=== PATIENT | female | born 1985 | race Caucasian/White ===

== ENCOUNTER → 2016-05-15 | Outpatient (CLI) | payer OTHER ==
[~2016-05-15] MED LIST: ACET-1311 PO; ACET-749 PO; AMOX500T PO; CLR10 PO; HYDR-3419 PO; IBUP600T44 PO; MISC-696; PRENTAB26 PO; RANI150T3 PO; VALA500T60 PO
[2016-05-15 16:36] LABS: HEMATOCRIT 30.1 % (37-47)
[2016-05-15 18:10] LABS: GTGD 50 Grams
[2016-05-15 18:19] LABS: URINE APPEARANCE CLEAR (CLEAR); URINE BILIRUBIN NEG (NEG); URINE COLOR YELLOW; URINE EPITHELIAL CELL AUTO >30 /lpf (0-5); URINE NITRITE NEG (NEG); URINE PH 6.5 (4.5-7.5); URINE SPECIFIC GRAVITY 1.024 (1.000-1.030); UROBILINOGEN NEG (NEG)
[2016-05-15 18:30] LABS: MANUAL MICROSCOPIC REQUIRED? NO; REVIEW REQ? NO
== END | disposition home or self-care (01) ==
LOC: C.LAB1850 15:21
PROVIDERS: ATTEND Obstetrics & Gynecology
DX: Z34.82 Encounter for supervision of other normal pregnancy, second trimester (principal)

== ENCOUNTER → 2016-05-27 | Outpatient (CLI) | payer OTHER | END | disposition home or self-care (01) | LOC: C.LAB1850 08:19 | PROVIDERS: ATTEND Obstetrics & Gynecology | DX: O28.9 Unspecified abnormal findings on antenatal screening of mother (principal) ==

== ENCOUNTER → 2016-07-20 | Outpatient (CLI) | payer OTHER ==
[~2016-07-20] MED LIST changes: +CPR500 PO; +SULF800T23 PO; +ZVR400 PO
== END | disposition home or self-care (01) ==
LOC: C.LABPVFM 14:53
PROVIDERS: ATTEND Family Medicine
DX: J02.9 Acute pharyngitis, unspecified (principal)

== ENCOUNTER 2016-07-22 21:19 | Inpatient (IN) | payer OTHER ==
[~2016-07-22] VITALS: Ht 160 cm; Wt 75.0 kg
[~2016-07-22 21:19] MED LIST changes: -ACET-749 PO; -AMOX500T PO; -CLR10 PO; -CPR500 PO; -HYDR-3419 PO; -MISC-696; -RANI150T3 PO; -SULF800T23 PO; -VALA500T60 PO; -ZVR400 PO
[2016-07-22] MEDS ORDERED: LACTATED RINGER'S 1000ML 1,000 ML IV PRN (21:44)
[2016-07-22] MEDS ORDERED: LACTATED RINGER'S 1000ML 1,000 ML IV SCH (21:44)
[2016-07-22] MEDS ORDERED: LACTATED RINGER'S 1000ML 500 ML IV PRN (21:44)
[2016-07-22] MEDS ORDERED: PENICILLIN G POTASSIUM IV 3 MU in DEXTROSE 5% 100ML 100 ML IV PRN (21:45)
[2016-07-22] MEDS ORDERED: OXYTOCIN 30 UNITS/500ML NSS IV PRN (21:45)
[2016-07-22] MEDS ORDERED: PENICILLIN G POTASSIUM IV 6 MU in DEXTROSE 5% 250ML 250 ML IV STA (21:48)
[2016-07-22 22:02] VITALS: Ht 160 cm; Wt 75.0 kg
[2016-07-22] MEDS ORDERED: VALA500T60 PO (22:07)
[2016-07-22] MEDS ORDERED: RANI150T3 PO (22:07)
[2016-07-22] MEDS ORDERED: CLR10 PO (22:07)
[2016-07-22 22:29] LABS: HEMATOCRIT 30.2 % (37-47); MEAN CELL VOLUME 80.7 fL (80-100); MEAN CORPUSCULAR HEMOGLOBIN 26.5 pg (25-34); MEAN CORPUSCULAR HGB CONC 32.8 g/dl (32-36); MEAN PLATELET VOLUME 9.3 fL (7.4-10.4); PLATELET COUNT 294 K/uL (130-400); RED BLOOD COUNT 3.74 M/uL (4.2-5.4); WHITE BLOOD COUNT 7.05 K/uL (4.8-10.8)
[2016-07-23] MEDS ORDERED: BUPIVACAINE 0.25% 30 ML VIAL ONE (01:07)
[2016-07-23] MEDS ORDERED: FENTANYL CITRATE INJ 50 MCG/1 ML 2 ML VIAL ONE (01:07)
[2016-07-23] MEDS ORDERED: EpHEDrine SULFATE INJ 50 MG/ML AMP ONE (01:07)
[2016-07-23] MEDS ORDERED: FENTANYL 2MCG/ML ROPIV 1.25MG/ML 100ML BAG EPI ONE (01:08)
[2016-07-23] MEDS ORDERED: LACTATED RINGER'S 1000ML 500 ML IV PRN (01:53)
[2016-07-23] MEDS ORDERED: ONDANSETRON INJ 2 MG/ML 2 ML VIAL IV PRN (02:00)
[2016-07-23] MEDS ORDERED: NALOXONE HCL INJ 0.4 MG/1 ML VIAL/CARP IV PRN (02:00)
[2016-07-23] MEDS ORDERED: EpHEDrine SULFATE INJ 50 MG/ML AMP IV PRN (02:00)
[2016-07-23] MEDS ORDERED: FENTANYL 2MCG/ML ROPIV 1.25MG/ML 100ML BAG EPI PRN (02:00)
[2016-07-23] MEDS ORDERED: DiphenhydrAMINE HCL 50 MG/ML VIAL IV PRN (02:00)
[2016-07-23] MEDS ORDERED: NALBUPHINE HCL INJ 10 MG/ML AMP IV PRN (02:00)
[2016-07-23] MEDS ORDERED: ACETAMINOPHEN 325 MG TAB PO PRN (04:00)
[2016-07-23] MEDS ORDERED: OXYTOCIN 30 UNITS/500ML NSS IV PRN (04:00)
[2016-07-23] MEDS ORDERED: LANOLIN OINT EXT PRN ×2 (04:00)
[2016-07-23] MEDS ORDERED: BENZOCAINE 20% AER SPR 82.5 GM CAN EXT PRN (04:00)
[2016-07-23] MEDS ORDERED: SUPERCREAM 0.870 % 15GM JAR EXT PRN (04:00)
[2016-07-23] MEDS ORDERED: HYDROCORTISONE ACETATE 25 MG SUPP PR PRN (04:00)
[2016-07-23] MEDS ORDERED: DIPHTHERIA/TETANUS/PERTUSSIS 0.5 ML SYR/VIAL IM. ONE (04:00)
[2016-07-23] MEDS ORDERED: ACETAMINOPHEN/CODEINE 300/30MG TAB PO PRN ×2 (04:00)
[2016-07-23 06:10] VITALS: BP 104/64; PULSE 93; TEMP 36.9
[2016-07-23 07:30] VITALS: BP 113/68; PULSE 91; TEMP 36.5; O2SAT 97
--- NOTE | 2016-07-23 07:40 | DELIVERY SUMMARY ---
DATE OF OPERATION: 07/23/2016 DATE OF DELIVERY: 07/23/2016. DELIVERY NOTE FINDINGS: Viable female with Apgars of 8 and 9. Baby delivered over a midline second degree laceration. Cord gasses, cord blood samples obtained. Placenta delivered spontaneously. Laceration repaired with 4-0 Vicryl in a routine fashion. Estimated blood loss 300 mL. LABOR NOTE: The patient is a 31-year-old 2, para 1 with an EDC of 06 August who was admitted at 37+ weeks gestational age with spontaneous rupture of membranes. The patient states membranes ruptured at approximately 2000 hours on the 22 of July with subsequent onset of contractions. The patient has had a benign course. She has a history of herpes simplex virus and is on Valtrex since 36 weeks. No recent outbreak. The patient's blood type is AB positive, antibody negative, rubella immune, hepatitis B negative. She had an elevated 1-hour Glucola at 28 weeks with a normal 2-hour glucose tolerance test. She has positive GBS bacteria. On admission the patient was 3 cm dilated, 50% efface, -2 station with gross rupture of membranes. With GBS status she was placed on penicillin at 6 million units loading dose and 3 million units every 4 hours until delivery. Because of the ruptured membranes Pitocin augmentation was initiated. Over the next 5 hours the patient progressed to full dilatation and began her second stage. She pushed for approximately an hour delivering a viable female infant with description as above. Cord blood samples, cord gas samples obtained. Placenta delivered spontaneously. Midline second degree laceration repaired with 4-0 Vicryl in a routine fashion. Estimated blood loss 300 mL. Sponge and needle count was correct. I attest to the content of the Intraoperative Record and any orders documented therein. Any exceptio ns are noted below.
[2016-07-23] MEDS: FERROUS SULFATE 325 MG TAB PO SCH (08:27)
[2016-07-23] MEDS: DOCUSATE SODIUM 100 MG CAP PO SCH ×2 (08:27→20:34)
[2016-07-23] MEDS: LORATADINE 10 MG TAB PO SCH (08:27)
[2016-07-23] MEDS: PRENATAL VITAMIN TAB PO SCH (08:27)
--- NOTE | 2016-07-23 10:30 | Anesthesia Procedure Note ---
Anesthesia Epidural Removal Nt Date & Time July 23, 2016 at 10:30 Vital Signs Pain Intensity: 0.0 Vital Signs Past 12 Hours Date Time Temp Pulse Resp B/P Pulse Ox O2 Delivery O2 Flow Rate FiO2 07/23/16 06:10 36.9 93 18 104/64 Room Air Notes Mental Status: alert / awake / arousable, participated in evaluation Nausea / Vomiting: adequately controlled Pain: adequately controlled Airway Patency, RR, SpO2: stable & adequate BP & HR: stable & adequate Hydration State: stable & adequate Neuraxial Anesthesia: was administered Anesthetic Complications: no major complications apparent, pt satisfied with anesthetic care Epidural: removed without complications, with tip intact
[2016-07-23 12:00] VITALS: BP 110/72; PULSE 97; TEMP 36.7; O2SAT 97
[2016-07-23 15:30] VITALS: BP 115/77; PULSE 90; TEMP 36.9
[2016-07-23] MEDS: IBUPROFEN 600 MG TAB PO PRN (18:11)
[2016-07-23 19:50] VITALS: BP 116/81; PULSE 90; TEMP 36.8
[2016-07-23 23:45] VITALS: BP 114/75; PULSE 79; TEMP 36.5
[2016-07-24 07:04] LABS: HEMATOCRIT 27.8 % (37-47)
--- NOTE | 2016-07-24 07:25 | Progress Note ---
Subjective July 24, 2016. Subjective conversation w/ patient, physical exam, lab review Ambulation: ambulating normally Voiding: no voiding problems Passing Gas: Yes Diet Tolerance: Regular Diet Lochia: Small Feeding Type: Breast Feeding Pain: denies pain Comment: Patient was seen at the bedside. No acute event overnight. Review of Systems Constitutional: No fever Respiratory: No cough, No shortness of breath Cardiac: No chest pain Breast: No breast lump Abdomen: No nausea, No pain, No vomiting Female : No dysuria Denies headache Objective Vital Signs Date Time Temp Pulse Resp B/P Pulse Ox O2 Delivery O2 Flow Rate FiO2 07/23/16 23:45 36.5 79 18 114/75 Room Air 07/23/16 23:45 Room Air 07/23/16 19:50 36.8 90 18 116/81 Room Air 07/23/16 15:30 Room Air 07/23/16 15:30 36.9 90 20 115/77 Room Air 07/23/16 12:00 36.7 97 16 110/72 97 Room Air 07/23/16 07:30 36.5 91 20 113/68 97 Room Air 07/23/16 07:30 97 Room Air Physical Exam General Appearance: WELL-APPEARING, WD/WN, NO APPARENT DISTRESS Respiratory/Chest: chest non-tender, lungs clear, normal breath sounds, no respiratory distress Cardiovascular: regular rate, rhythm Abdomen: normal bowel sounds, non tender, soft Fundus: Firm, Relation to Umbilicus (1-2cm below U) Extremities: non-tender, no pedal edema, no calf tenderness Laboratory Results Last 24 Hours Test 07/24/16 06:40 Hemoglobin 9.0 g/dL Hematocrit 27.8 % Medications Current Inpatient Medications Medications (Trade) Dose Ordered Sig/Brenda Route Start Time Stop Time Status Last Admin Dose Admin Lactated Ringer's (Lr 1000ml) 1,000 ml @ 125 mls/hr Q8H IV 07/22/16 21:44 07/24/16 21:43 07/22/16 22:08 125 MLS/HR Oxytocin (Pitocin IV) 30 units UD PRN IV 07/23/16 04:00 08/22/16 03:59 Benzocaine (Dermoplast Aero Spr) 1 appln PRN PRN EXT 07/23/16 04:00 08/22/16 03:59 07/23/16 09:07 1 APPLN Cocaine HCl (Supercream 0.870% Cr) BID PRN EXT 07/23/16 04:00 08/06/16 03:59 Hydrocortisone Acetate (Anusol Hc Supp) 25 mg BID PRN HI 07/23/16 04:00 08/22/16 03:59 Lanolin (Lanolin Oint) PRN PRN EXT 07/23/16 04:00 08/22/16 03:59 Prenat Multivit/ [place]/Iron/Folic Ac ( Vitamin Tab) 1 tab DAILY PO 07/23/16 08:00 08/22/16 07:59 07/23/16 08:27 1 TAB Ibuprofen (Motrin Tab) 600 mg Q4H PRN PO 07/23/16 04:00 08/22/16 03:59 07/23/16 18:11 600 MG Acetaminophen (Tylenol Tab) 650 mg Q6H PRN PO 07/23/16 04:00 08/22/16 03:59 Acetaminophen/ Codeine Phosphate (Tylenol w/ Codeine #3 Tab) 1 tab Q4H PRN PO 07/23/16 04:00 08/22/16 03:59 Acetaminophen/ Codeine Phosphate (Tylenol w/ Codeine #3 Tab) 2 tab Q4H PRN PO 07/23/16 04:00 08/22/16 03:59 Bisacodyl (Dulcolax Tab) 5 mg 20 PO 07/24/16 20:00 07/24/16 20:01 Docusate Sodium (coLACE CAP) 100 mg BID PO 07/23/16 08:00 08/22/16 07:59 07/23/16 20:34 100 MG Ferrous Sulfate (Feosol Tab) 325 mg DAILY PO 07/23/16 08:00 08/22/16 07:59 07/23/16 08:27 325 MG Loratadine (Claritin Tab) 10 mg DAILY PO 07/23/16 08:00 08/22/16 07:59 07/23/16 08:27 10 MG Assessment and Plan Post- Day#: 1 Continue Routine Care: A/P: This is a 31 y/o female, , s/p normal vaginal delivery. She is ambulating and clinically stable. Plan: - Vitals signs are reviewed and WNL (Tmax 36.9 ) - Last Hgb is 9.0 - Blood type AB+, GBS positive, Rubella Immune - Routine care - Encourage ambulation, monitor and control pain with medication as needed , continue with regular diet as tolerated and monitor lochia - Stool softeners and sitz bath recommended - Encourage breast feeding and educate about breast feeding Resident Physician Supervision Note: I interviewed and examined the patient. Discussed with Dr. Yeh and agree with findings and plan as documented in the note. Any exceptions or clarifications are listed here: [None] Documented By: Meme Bass
[2016-07-24 08:00] VITALS: BP 100/65; PULSE 68; TEMP 36.9
[2016-07-24] MEDS: DOCUSATE SODIUM 100 MG CAP PO SCH (08:26)
[2016-07-24] MEDS: FERROUS SULFATE 325 MG TAB PO SCH (08:26)
[2016-07-24] MEDS: PRENATAL VITAMIN TAB PO SCH (08:26)
[2016-07-24] MEDS: LORATADINE 10 MG TAB PO SCH (08:26)
[2016-07-24] MEDS: IBUPROFEN 600 MG TAB PO PRN (08:35)
--- NOTE | 2016-07-24 11:56 | Discharge Instructions ---
Discharge Instructions Date of Service July 24, 2016. Admission Reason for Admission: Check Rupture Discharge Discharge Diagnosis / Problem: s/p vaginal delivery Discharge Goals Goal(s): Routine recovery after delivery Medications Continue Dispensed Medications: supercream, dermaplast, tucks, lansinoh Activity Recommendations Activity Limitations: as noted below . Instructions / Follow-Up Instructions / Follow-Up ACTIVITY RECOMMENDATIONS: * Gradual return to full activity over the next 2-3 weeks. * No lifting - nothing heavier than baby over the next 2-3 weeks. * Do not engage in vigorous exercise, sexual activity or sports until cleared by your physician. * Do not drive or operate any motorized equipment until cleared by your physician. * You may shower/bathe daily. MEDICATIONS: For discomfort or pain, you may use Acetaminophen (Tylenol), Ibuprofen (Advil), or Naproxen (Aleve) following the package directions. For constipation you may use Colace following the package directions. BREAST CARE: If you are not breast feeding: * Wear a supportive bra 24 hours a day for one to two weeks. * Avoid stimulating your breasts and nipples as much as possible during the first few weeks after delivery. * When taking a shower, have the warm water hit your back, not breasts. * When your breasts feel full, apply ice packs. Usually three to four times a day helps ease the discomfort. * Take a mild pain medication (Tylenol / Motrin) when you are uncomfortable. If breast feeding: * Use breast milk to lubricate nipples. Lansinoh cream may be used for sore nipples. You do not need to remove cream prior to breast feeding. If using a different brand of cream, check the label for directions regarding removal of cream prior to nursing. * Wear a supportive bra. * If having problems with breasts or breast feeding, call a [employer] i[employer] consultant or your health care provider. EPISIOTOMY CARE: After delivery, if you have an episiotomy (stitches), the following steps will ease discomfort and aid healing. * For the first 24 hours after delivery, place ice packs next to your episiotomy to help reduce swelling. * After the first 24 hour-period, sitz baths, either portable or in the tub, are suggested. A shower with a shower arm sprayed over the episiotomy may be comforting. * Tricia care should be done after each voiding and bowel movement. Squirt warm water from a plastic bottle over the perineum (region of the body between the anus and urinary opening) and pat dry. * Use Dermoplast to ease discomfort. Shake container. [place] directly over the episiotomy. Place a Tucks on a clean sanitary pad next to your episiotomy. SPECIAL CARE INSTRUCTIONS: When you are discharged from the hospital, it is important for you to follow the instructions listed below: * During the first week at home, you should be able to care for yourself and your baby. In addition, the usual light household activities are encouraged. * Limit your activities to the way you feel. Do not try to clean the house or move furniture. Be sensible. * If you actively engage in sports and have done so up until the time of your delivery, you may resume these activities as soon as you feel able. This may take up to one month or even longer. Use good judgment. * Continue to take your vitamins for at least six weeks after the of your baby. * Your diet need not be limited unless you were on a special diet before your delivery. Breast-feeding mothers need around 2500 calories per day and at least 64-80 ounces of fluid per day (8 to 10 glasses). * You should eat foods from the four major food groups. Crash diets or fad diets are to be avoided. Eating lean meats, fresh fruits and vegetables, low-fat dairy products, high fiber foods and a regular exercise program, will help you get back to your pre- weight without putting your health at risk. * Constipation is sometimes a problem after delivery. Take a mild laxative as needed. If breast feeding, Milk of Magnesia is acceptable to use. You may use a suppository or Fleets enema if no episiotomy. * A daily shower or tub bath is suggested. Be sure to thoroughly and gently dry the perineum. * A bloody vaginal discharge will usually continue until around four weeks post . A small amount of bleeding may continue for as long as six weeks. Vaginal discharge changes from the bright red bleeding after delivery to pink then brownish and finally yellowish-pink before becoming white and disappearing. * Bleeding may increase with activity. Your first period may come in 4-8 weeks. If you are breast feeding, your period may be delayed even longer. * [place] (sex) can begin whenever both you and your partner feel comfortable and do not have any form of genital infection. It is recommended that you wait at least six weeks for internal and external healing to occur. If you have questions, please talk to your health care practitioner. A condom should be used to prevent infection and . * Foreplay, gentle intercourse and lubrication is very important the first several times to prevent pain. A water-based lubricant such as K-Y jelly or Astroglide may be used. * If you have RH negative blood and your baby is RH positive, you will receive RHOGAM by injection prior to discharge. The nurse will give you a card to keep with you that has the date and place that you received RHOGAM after delivery. * During your care, you had a Rubella screen done to check for the presence of rubella antibodies in your blood. If your test was negative, you will receive a Rubella vaccine prior to discharge. This vaccine may cause a fever, soreness at the injection site and flu-like symptoms. If these symptoms persist, notify your health care practitioner. is not advised for one month after a Rubella vaccine. * Verbalizes understanding of car seat law as reviewed with patient nursing. * Car Seat hand-out given and reviewed with patient by nursing. * Shaken baby information reviewed with patient by nursing. Call you doctor if: * Heavy bleeding (saturating several pads an hour) or passing clots the size of your fist. * A fever >101 degrees F (38.3 degrees C) on two occasions four hours apart and /or chills. * Unusual pain in the pelvic or vaginal areas. * "Baby Blues" lasting longer than two weeks. If you have any questions or concerns, call your health care practitioner at . FOLLOW UP VISIT: * Please call the office at to schedule a 6 week examination. It is important you keep this appointment. It is important for you to make arrangements for either yearly or twice yearly check-ups thereafter. Current Hospital Diet Patient's current hospital diet: Regular OB Diet Discharge Diet Recommended Diet: Regular Diet Pending Studies Studies pending at discharge: no Medical Emergencies . Who to Call and When: Medical Emergencies: If at any time you feel your situation is an emergency, please call 531 immediately. . Non-Emergent Contact Non-Emergency issues call your: Ticket Sales Supervisor Call Non-Emergent contact if: you have a fever, temperature is above 101 . . "Provider Documentation" section prepared by Rivka Yeh. . VTE Core Measure Inpt VTE Proph given/why not?: Treatment not indicated
[2016-07-24] MEDS ORDERED: MISC-696 (14:31)
[2016-07-24 14:37] VITALS: BP_DIAS 65; PULSE 68; TEMP 36.9
[2016-07-24] MEDS ORDERED: BISACODYL 5 MG TABEC PO SCH (20:00)
[2016-08-25] MEDS ORDERED: ACET-1311 PO (11:12)
== END 2016-07-24 15:10 | disposition home or self-care (01) | DRG 774 ==
LOC: C.LD 21:19 → C.OPB 21:19 → C.LD 21:46 → C.OBG 07-23 06:22
PROVIDERS: ADMIT Obstetrics & Gynecology; ATTEND Obstetrics & Gynecology
PROC: 10E0XZZ Delivery of Products of Conception, External Approach (ICD-10-PCS; principal; 2016-07-23)
PROC: 0KQM0ZZ Repair Perineum Muscle, Open Approach (ICD-10-PCS; principal; 2016-07-23)
DX: O99.824 Streptococcus B carrier state complicating childbirth (principal); O98.52 Other viral diseases complicating childbirth; B00.9 Herpesviral infection, unspecified; O70.1 Second degree perineal laceration during delivery; O99.52 Diseases of the respiratory system complicating childbirth; J04.0 Acute laryngitis; O99.62 Diseases of the digestive system complicating childbirth; K21.9 Gastro-esophageal reflux disease without esophagitis; O99.02 Anemia complicating childbirth; D64.9 Anemia, unspecified; Z37.0 Single live birth; Z3A.37 37 weeks gestation of pregnancy; Z79.899 Other long term (current) drug therapy

== ENCOUNTER → 2016-08-04 | Outpatient (CLI) | payer OTHER ==
[~2016-08-04] MED LIST changes: +ACET-749 PO; +AMOX500T PO; +CLR10 PO; +CPR500 PO; +HYDR-3419 PO; -IBUP600T44 PO; +MISC-696; +OPTIRAY 320 IV PRN; +RANI150T3 PO; +SULF800T23 PO; +VALA500T60 PO; +ZVR400 PO
--- NOTE | 2016-08-04 15:47 | DIAGNOSTIC IMAGING REPORT ---
CT SCAN OF THE BRAIN WITH IV CONTRAST CLINICAL HISTORY: Vocal cord paralysis. COMPARISON STUDY: No priors. TECHNIQUE: Axial CT scan of the brain is performed from the vertex to the skull base following the IV administration of 116 cc of Optiray 320. Automated dose control exposure was utilized. IV contrast was administered without complication. CT DOSE: 1233.36 mGy.cm FINDINGS: Brain parenchyma: The brain parenchyma is normal in appearance. There is no hemorrhage, mass effect, or evidence of acute territorial ischemia by CT criteria. No enhancing mass lesion is seen. Scott-white matter is preserved. No extra-axial fluid collection is seen. Ventricles, sulci, cisterns: Normal in configuration. Intracranial vasculature: The visualized intracranial vasculature at the skull base is normal in appearance. Calvarium: No destructive calvarial lesion is identified. Sinuses and mastoids: The visualized paranasal sinuses are clear. The mastoid air cells are well pneumatized. Orbits: The bony orbits are grossly intact. IMPRESSION: No acute intracranial abnormality. Electronically signed by: Anthony Villegas M.D. 08/04/2016 3:45 PM Dictated Date/Time: 08/04/2016 3:43 PM
--- NOTE | 2016-08-04 15:55 | DIAGNOSTIC IMAGING REPORT ---
CHEST CT WITH CONTRAST CT DOSE: HISTORY: J38.00 Vocal cord paralysis Left vocal cord paralysis TECHNIQUE: Multiaxial CT images of the chest were performed following the intravenous administration of contrast. COMPARISON: None. FINDINGS: Large mass occupying the bulk of the left hemithorax. This involves the bulk of the left hemithorax, with extension to the left hilum and extends to the anterior and mid mediastinal regions. Maximum transaxial dimensions are approximately 12 x 10 cm with maximum cephalocaudal dimension of no less than 12 to 14 cm. The mass completely compresses and/or involves the left upper lobe bronchus with secondary narrowing of the left lower lobe bronchus. There is a small left effusion. There is atelectatic changes of the left lower lobe. There is complete atelectasis and/or involvement of the left upper lobe. There is extension to the anterior mediastinum. Superior extension to the low left soft tissue neck. Its maximum superior dimension is not known based on this exam. It encompasses components of the venous/supraclavicular neural plexus in the left supraclavicular region. Trachea is displaced moderately to the right as is the cardiac silhouette. The right lung shows no significant nodularity. There is a small 5 mm pericardial nodule is best seen medially adjacent to the right middle lobe. Significant or bulky right pulmonary nodularity is not appreciated. Atelectatic change left lower lobe is again noted. There is again noted to be a small left effusion. Osseous structures appear to be intact. IMPRESSION: 1. Large mass occupying the bulk of the left hemithorax with complete occlusion of the left upper lobe bronchus, mediastinal and left hilar extension, with post obstructive atelectatic change of components of the left lower lobe. 2. Left pleural effusion, with moderate displacement of the cardiac and tracheoesophageal shadows to the right. 3. Soft tissue neck extension to the lower left region of the soft tissue neck. CT study of the soft tissue neck is suggested for further quantification of the superior extension. 4. Consideration may also be a be given to a CT of the abdomen and pelvis 5. Diagnostic considerations must include an atypical neoplastic process, lymphoma, with the possibility of a intrathoracic sarcoma and/or lymphoid hyperplasia also diagnostic considerations. 6. Nevertheless, neoplasm is initially diagnosis of exclusion. Electronically signed by: Olegario Aguilar M.D. 08/04/2016 3:54 PM Dictated Date/Time: 08/04/2016 3:42 PM
--- NOTE | 2016-08-04 15:55 | DIAGNOSTIC IMAGING REPORT ---
CT NECK WITH INTRAVENOUS CONTRAST HISTORY: J38.00 Vocal cord paralysis Left vocal cord paralysis. TECHNIQUE: Multiaxial CT images of the neck were performed following the use of intravenous contrast. COMPARISON STUDY: None. FINDINGS: The visualized brain parenchyma is unremarkable. The major mucosal airway surfaces are intact. The thyroid gland enhances normally. The carotid and vertebral arteries are widely patent. The right internal jugular vein is patent. The left internal jugular vein is patent but partially compressed distally. There is left supraclavicular lymphadenopathy/mass. This measures 4.0 x 2.8 cm in size. There are few additional asymmetrically enlarged left lower cervical lymph nodes measuring up to 10 x 7 mm. The parotid glands are symmetric. Punctate stone within the left parotid gland. Normal left submandibular gland. The right submandibular gland is not identified. Left pleural effusion with a large masslike opacity of the left upper lobe which extends into the left superior mediastinum. This is only partially visualized on this study. The left supraclavicular lymphadenopathy/mass partially encases the left proximal subclavian artery and proximal left vertebral artery. There is mild right deviation of the trachea which appears patent. There is also superior mediastinal lymphadenopathy. There are 2 subcentimeter nodules within the right lung apex measuring up to 4 mm. No suspicious lytic or blastic osseous lesions. The epiglottis and prevertebral soft tissues are normal in thickness. IMPRESSION: 1. Partially visualized large mass within the left upper lobe which extends into the superior mediastinum. This is better appreciated on the same day chest CT. 2. Left lower cervical and supraclavicular lymphadenopathy as described above. There is also superior mediastinal lymphadenopathy. 3. Small left pleural effusion. 4. There are 2 indeterminate subcentimeter nodules within the right lung apex. Electronically signed by: Anjel Sun M.D. 08/04/2016 3:53 PM Dictated Date/Time: 08/04/2016 3:44 PM
== END ==
LOC: C.CTS 14:37
PROVIDERS: ATTEND Physician Assistant
DX: J38.00 Paralysis of vocal cords and larynx, unspecified (principal)

== ENCOUNTER → 2016-08-05 | Outpatient (CLI) | payer OTHER ==
[~2016-08-05] MED LIST changes: -OPTIRAY 320 IV PRN
[2016-08-05 14:56] LABS: PLATELET COUNT 461 K/uL (130-400)
[2016-08-05 15:03] LABS: INR 1.3 (0.9-1.1); PARTIAL THROMBOPLASTIN RATIO 1.3; PROTHROMBIN TIME (PATIENT) 13.6 SECONDS (9.0-12.0)
[2016-08-07 10:54] LABS: AFP TUMOR MARKER SERUM 8.9 NG/ML (<6.1)
== END | disposition home or self-care (01) ==
LOC: C.LAB 13:36
PROVIDERS: ATTEND Surgery
DX: R91.8 Other nonspecific abnormal finding of lung field (principal)

== ENCOUNTER → 2016-08-06 | Outpatient (CLI) | payer OTHER ==
--- NOTE | 2016-08-06 13:48 | Discharge Instructions ---
Discharge Instructions Procedure Procedure Date: August 06, 2016. Reason for visit: L Superclavicular Mass,Biopsy-Fna Or Trucut. Discharge Discharge Date: August 06, 2016. Discharge Diagnosis: same Instructions Activity Recommendations: No limitations Return to School/Work: no limitations Recommended Home Diet: Resume Previous Diet Provider Instructions: ACTIVITY RECOMMENDATIONS: * Rest today. * Resume regular activity in one day. MEDICATIONS: * May take Tylenol or Ibuprofen as needed for pain. DIET: * Resume previous diet. SPECIAL CARE INSTRUCTIONS: Call your doctor if: * Temperature above 101 degrees F. * Pain not relieved by pain medicine ordered. * Increased drainage or redness from incision. * Notify your doctor with any questions or concerns. Call your doctor or go to the nearest Emergency Department if you experience: * Increased chest pain or shortness of breath. FOLLOW UP VISIT: Follow-up with Referring Physician as scheduled. Allergies Coded Allergies: No Known Allergies (Verified Allergy, Mild, 0, 01/06/09) Eleno Cotton Recommendations: Call your doctor if: * Temperature above 101 degrees * Pain not relieved by pain medicine ordered * There is increased drainage or redness from any incision * You have any unanswered questions or concerns. Your Doctors Instructions noted above were prepared by provider Anjel Sun. Patient Signature Section: Patient Instructions Signature Page Oxana Milton Patient (or Guardian) Signature/Date: I have read and understand the instructions given to me by my caregivers. Caregiver/RN/Doctor Signature/Date: The above-named patient and/or guardian has received patient instructions on this date. + Original Patient Signature Page (only) stays with chart. Please make copy for patient.
--- NOTE | 2016-08-06 14:12 | DIAGNOSTIC IMAGING REPORT ---
ULTRASOUND-GUIDED FINE-NEEDLE ASPIRATION OF A LEFT SUPRACLAVICULAR MASS HISTORY: Supraclavicular mass. LUNG MASS COMPARISON: Neck CT 08/04/2016. PROCEDURE: Written informed consent was obtained. The neck was prepped and draped in the usual sterile fashion. 1% lidocaine was used for local anesthesia. A total of 2 passes using a 25-gauge needle were made through left supraclavicular mass under ultrasound guidance. Tiny minimal material was obtained. Therefore, a 22-gauge needle, 20-gauge core, and a 22-gauge Adalgisa needle was also placed through the left ventricular mass. Specimens were given to the on-site pathologist who determined on the a few cells diagnosis. No additional attempts were made as the fine-needle aspiration/core biopsies were of limited yield. The patient tolerated the procedure well. There were no immediate complications. IMPRESSION: Status post fine-needle aspiration/core biopsy of the left supraclavicular mass with only scant tissue obtained. No immediate complications. Specimens given to the on-site pathologist. Electronically signed by: Anjel Sun M.D. 08/06/2016 2:11 PM Dictated Date/Time: 08/06/2016 2:08 PM
== END | disposition home or self-care (01) ==
LOC: C.ULTR 12:26
PROVIDERS: ATTEND Surgery
DX: C76.0 Malignant neoplasm of head, face and neck (principal)

== ENCOUNTER → 2016-08-10 | Outpatient (CLI) | payer OTHER ==
[~2016-08-10] MED LIST changes: +OPTIRAY 320 IV PRN
--- NOTE | 2016-08-10 14:04 | DIAGNOSTIC IMAGING REPORT ---
ABDOMEN AND PELVIS CT WITH IV AND ORAL CONTRAST CT DOSE: 378.20 mGy.cm HISTORY: Lung mass. Assess for metastatic disease. TECHNIQUE: Multiaxial CT images of the abdomen and pelvis were performed following the use of intravenous and oral contrast. COMPARISON STUDY: Chest CT 08/04/2016. FINDINGS: There is again noted a large mass occupying the majority of the left hemithorax and extending into the mediastinum. This is better appreciated on the prior chest CT. There is a small air fluid level within the mid aspect of the left lung mass. Small left pleural effusion is again noted. There is right mediastinal shift due to the large left lung mass. No pneumoperitoneum. No pneumatosis. No suspicious lytic or blastic osseous lesions within the visualized osseous structures. The liver, gallbladder, pancreas, spleen, adrenal glands, and kidneys are unremarkable. The bladder is unremarkable. No significant pelvic free fluid. The uterus is mildly enlarged likely due to the patient's post gravid state. Moderate stool within the colon. No bowel wall thickening or obstruction. No lymphadenopathy within the abdomen or pelvis. IMPRESSION: 1. The large left lung mass is again noted and is only partially visualized on this study. This contains a small air-fluid level centrally. There is a small left pleural effusion, unchanged. 2. No evidence for metastatic disease within the abdomen or pelvis. Electronically signed by: Anjel Sun M.D. 08/10/2016 2:02 PM Dictated Date/Time: 08/10/2016 1:53 PM
== END | disposition home or self-care (01) ==
LOC: C.CTS 12:49
PROVIDERS: ATTEND Surgery
DX: R91.8 Other nonspecific abnormal finding of lung field (principal)

== ENCOUNTER 2016-08-11 10:42 | Day surgery (SDC) | payer OTHER ==
[2016-08-10 18:04] VITALS: BMI 27.0
[~2016-08-11] VITALS: Ht 157.5 cm; Wt 67.0 kg
[~2016-08-11 10:42] MED LIST changes: -ACET-1311 PO; -ACET-749 PO; -AMOX500T PO; -CPR500 PO; -HYDR-3419 PO; -OPTIRAY 320 IV PRN; -SULF800T23 PO; -VALA500T60 PO; -ZVR400 PO
[2016-08-11] MEDS ORDERED: VALA500T60 PO (11:02)
[2016-08-11] MEDS ORDERED: AMOX500T PO (11:02)
[2016-08-11 11:03] VITALS: BP 104/63; PULSE 77; TEMP 36.7; O2SAT 98; Ht 157.5 cm; Wt 67.0 kg
[2016-08-11] MEDS ORDERED: PROPOFOL IV EMULSION 10 MG/ML 20 ML VIAL IV ONE (12:06)
[2016-08-11] MEDS ORDERED: LIDOCAINE HCL 2% 2 ML VIAL (20MG/ML) ONE (12:06)
[2016-08-11] MEDS ORDERED: MIDAZOLAM HCL 1 MG/ML 2ML VIAL ONE (12:06)
[2016-08-11] MEDS ORDERED: FENTANYL CITRATE INJ 50 MCG/1 ML 2 ML VIAL ONE ×2 (12:06→13:08)
--- NOTE | 2016-08-11 12:35 | History & Physical Bridge Note ---
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
[2016-08-11] MEDS ORDERED: DEXAMETHASONE SOD INJ 4 MG/ML VIAL ONE (12:38)
[2016-08-11] MEDS ORDERED: GLYCOPYRROLATE INJ 0.2 MG/ML VIAL ONE (12:38)
[2016-08-11] MEDS ORDERED: ROCURONIUM BROMIDE 10 MG/ML 5 ML VIAL ONE (12:38)
[2016-08-11] MEDS ORDERED: ONDANSETRON INJ 2 MG/ML 2 ML VIAL ONE ×2 (12:38→13:09)
[2016-08-11] MEDS ORDERED: LARYING-O-JET KIT (LTA) EXT ONE ×2 (12:38)
[2016-08-11] MEDS ORDERED: NEOSTIGMINE METHYLSULFATE 5 MG/5 ML SYR ONE (12:38)
[2016-08-11] MEDS ORDERED: METOCLOPRAMIDE HCL INJ 5 MG/ML 2 ML VIAL ONE (12:45)
[2016-08-11] MEDS ORDERED: BUPIVACAINE 0.5 % 5 MG/1 ML MPF 30ML VIAL ONE (12:58)
[2016-08-11] MEDS ORDERED: SURGICEL ABSORB HEMOSTAT 2IN X 14IN TOP ONE (13:36)
[2016-08-11] MEDS ORDERED: LACTATED RINGER'S 1000ML 1,000 ML IV SCH (14:03)
[2016-08-11] MEDS ORDERED: ACET-749 PO (14:05)
--- NOTE | 2016-08-11 14:13 | Discharge Instructions ---
Discharge Instructions Date of Service August 11, 2016. Visit Reason for Visit: Left Supraclavicular Mass Discharge Discharge Diagnosis / Problem: biopsy supraclavicular mass Discharge Goals Goal(s): Diagnostic testing Activity Recommendations Activity Limitations: as noted below Shower/Bathe: tomorrow Anesthesia . Post Anesthesia Instructions: If you have had General Anesthesia or IV Sedation: * Do not drive today. * Resume driving when surgeon permits. * Do not make important decisions or sign legal documents today. * Call surgeon for: 1. Temperature elevations greater than 101 degrees F. 2. Uncontrollable pain. 3. Excessive bleeding. 4. Persistent nausea and vomiting. 5. Medication intolerance (nausea, vomiting or rash). * For nausea and vomiting use only clear liquids such as: tea, soda, bouillon until nausea subsides, then gradually increase diet as tolerated. * If you have any concerns or questions, call your surgeon's office. If physician is unavailable and it is an emergency, call 911 or go to the nearest emergency room. . Instructions / Follow-Up Instructions / Follow-Up Dr. Carrillo in 1 week, call [phone] if you have any questions or need to schedule You can take Tylenol for pain, if you need something stronger you may use the Tylenol #3 prescription and dump breast milk Diet Recommendations Recommended Home Diet: no limitations Procedures Procedures Performed: Left Supraclavicular Mass Biopsy with Frozen Section Pending Studies Studies pending at discharge: yes List of pending studies: Pathology Medical Emergencies . Who to Call and When: Medical Emergencies: If at any time you feel your situation is an emergency, please call 911 immediately. . Non-Emergent Contact Non-Emergency issues call your: Surgeon Call Non-Emergent contact if: you have a fever, temperature is above 101.5, your pain is not controlled, wound has increased pain, you have any medication questions . . "Provider Documentation" section prepared by Dank Todd. .
[2016-08-11] MEDS ORDERED: ATROPINE SULFATE 0.1 MG/ML 5ML SYR IV PRN (14:15)
[2016-08-11] MEDS ORDERED: ONDANSETRON INJ 2 MG/ML 2 ML VIAL IV PRN ×2 (14:15)
[2016-08-11] MEDS ORDERED: FENTANYL CITRATE INJ 50 MCG/1 ML 2 ML VIAL IV PRN (14:15)
[2016-08-11] MEDS ORDERED: ACETAMINOPHEN/CODEINE 300/30MG TAB PO PRN (14:15)
--- NOTE | 2016-08-11 14:15 | [facility] Post Operative Brief Note ---
Immediate Operative Summary Operative Date August 11, 2016. Pre-Operative Diagnosis Left lung mass Post-Operative Diagnosis Same Procedure(s) Performed Left Supraclavicular Mass Biopsy with Frozen Section Surgeon Dr Carrillo Winder Fixer Surgeon(s) Dank Todd PA-C Estimated Blood Loss 2ML Findings maligant cells by frozen section and enough tissue available for permanent Specimens Frozen section #1 biopsy left supraclavicular mass- sent out at [address] taken [address] lab by Dr Carrillo Frozen section #2 biopsy left supraclavicular mass sent out at 1333
[2016-08-11 14:50] VITALS: BP 112/68; PULSE 83; TEMP 37.1; O2SAT 93
--- NOTE | 2016-08-11 15:02 | OPERATIVE REPORT ---
DATE OF OPERATION: 08/11/2016 PREOPERATIVE DIAGNOSIS: Left lung mass with extension to mediastinal and neck. POSTOPERATIVE DIAGNOSIS: Same. PROCEDURE: Incisional biopsy left supraclavicular mass. SURGEON: Dr. Carrillo. JIGGER OPERATOR: Arnav Todd PA-C. OPERATION AND FINDINGS: SUMMARY: The patient was brought into the operating room under general anesthetic. The left neck area was prepped Betadine scrubbing solution and properly draped. This 31-year-old female has a large tumor replacing left chest cavity with extension up into the neck and the mediastinal. She had a fine needle aspirate, there was not enough tissue obtainable even with a Jean-Cut needle. She is here for an incisional biopsy. 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 Therefore, an incision was made right parallel to the clavicle on the left between the 2 heads of the sternocleidomastoid. This was near where the needle had been inserted for biopsy. We dissected down. The incision was made about 1 inch long. We dissected and divided between the fibers of the 2 heads of the sternocleidomastoid and were able to get into this hard mass that we could feel. Surrounding it there was some fibrous tissue, almost friable type tissue in nature, it appeared to be beaded in a few areas. We took these obviously was anomaly. Once we dissected further down we got into what felt like really hard pseudocapsule or capsule itself. I took 2 pieces of that and sent everything for pathology. I went over personally. They felt that they had some tumor cells but would like the possibility of more tissue; therefore, I dissected further down and actually got into the real hard mass which was very fibrous in nature and took 2 pieces between 0.5 cm and 1 cm in size. I took this to pathology and they felt they had enough tissue after they felt that they were dealing with the same process for definitive diagnosis. The area was checked for hemostasis and appeared satisfactory. A piece of Surgicel was placed in the area. Wounds were closed by 2-0 Dexon and 4-0 Monocryl. Steri-Strips applied. The procedure was tolerated well. Estimated blood loss approximately 5 mL. The patient was taken to recovery room in good condition. I attest to the content of the Intraoperative Record and any orders documented therein. Any exceptio ns are noted below.
[2016-08-11 15:20] VITALS: BP 116/68; PULSE 85; TEMP 36.4; O2SAT 93
[2016-08-11 15:40] VITALS: BP 110/74; PULSE 79; TEMP 36.6; O2SAT 96
--- NOTE | 2016-08-11 15:47 | Anesthesiology Progress Note ---
Anesthesia Post Op Note Date & Time August 11, 2016 at 15:47 Vital Signs Pain Intensity: 0 Vital Signs Past 12 Hours Date Time Temp Pulse Resp B/P Pulse Ox O2 Delivery O2 Flow Rate FiO2 08/11/16 14:50 37.1 83 16 112/68 93 Room Air 08/11/16 14:40 36.1 79 20 115/75 92 Room Air 08/11/16 14:30 83 13 126/69 92 Room Air 08/11/16 14:20 86 17 110/66 99 Mask 10 08/11/16 14:10 80 21 116/80 99 Mask 10 08/11/16 14:03 36.0 87 16 113/74 100 Mask 10 08/11/16 11:03 36.7 77 18 104/63 98 Room Air Notes Mental Status: alert / awake / arousable, participated in evaluation Pt Amnestic to Procedure: Yes Nausea / Vomiting: adequately controlled Pain: adequately controlled Airway Patency, RR, SpO2: stable & adequate BP & HR: stable & adequate Hydration State: stable & adequate Anesthetic Complications: no major complications apparent
[2016-08-25] MEDS ORDERED: ACET-1311 PO (11:12)
== END 2016-08-11 15:52 | disposition home or self-care (01) ==
LOC: C.ACU 10:42
PROVIDERS: ATTEND Surgery
DX: R91.8 Other nonspecific abnormal finding of lung field (principal); Z90.89 Acquired absence of other organs

== ENCOUNTER 2016-08-27 08:33 | Day surgery (SDC) | payer OTHER ==
[2016-08-25 11:15] VITALS: BMI 25.0
[~2016-08-27] VITALS: Ht 157.5 cm; Wt 63.6 kg
[~2016-08-27 08:33] MED LIST changes: +ACET-1311 PO; +LACTATED RINGER'S 1000ML 1,000 ML IV SCH; -MISC-696; -RANI150T3 PO; +VALA500T60 PO
[2016-08-27 08:59] VITALS: BP 109/63; PULSE 85; TEMP 36.8; O2SAT 97; Ht 157.5 cm; Wt 63.6 kg
[2016-08-27] MEDS ORDERED: LIDOCAINE HCL 2% 2 ML VIAL (20MG/ML) ONE (09:46)
[2016-08-27] MEDS ORDERED: MIDAZOLAM HCL 1 MG/ML 2ML VIAL ONE ×2 (09:46→11:18)
[2016-08-27] MEDS ORDERED: PROPOFOL IV EMULSION 10 MG/ML 20 ML VIAL IV ONE (09:46)
[2016-08-27] MEDS ORDERED: LACTATED RINGER'S 1000ML 1,000 ML IV PRN (09:46)
[2016-08-27] MEDS ORDERED: FENTANYL CITRATE INJ 50 MCG/1 ML 2 ML VIAL ONE (09:46)
[2016-08-27] MEDS ORDERED: ONDANSETRON INJ 2 MG/ML 2 ML VIAL IV PRN ×2 (10:00→12:00)
[2016-08-27] MEDS ORDERED: FENTANYL CITRATE INJ 50 MCG/1 ML 2 ML VIAL IV PRN (10:00)
--- NOTE | 2016-08-27 10:45 | History and Physical ---
History & Physical Date Aug 27, 2016. History of Present Illness The patient is a 31 year old female with complaints of Hodgkin's lymphoma dx on 08/15/16 with open left supraclavicular mass wedge biopsy seen at [facility] in [place] and rec a-port placement that will place today and be seen there tomorrow to get bone biopsy and start chemo since last seen here angie 2 weeks ago no change in her health still has hoarseness and cough Past Medical/Surgical History Medical Problems: (1) Carrier of group B Streptococcus (2) Supervision of normal intrauterine in multigravida in third trimester Additional History Hepatic Disease: No Endocrine Disorder: No Kidney Disease: No Hypertension: No Heart Disease: No Bleeding Tendencies: No Infectious Diseases: No Allergies Coded Allergies: No Known Allergies (Unverified , 08/27/16) Home Medications Scheduled Multivit/Min/Iron/Fol Ac/Pren ( Vitamin), 1 TAB PO DAILY Valacyclovir (Valtrex), 500 MG PO DAILY Scheduled PRN Acetaminophen (Tylenol), 325 MG PO BID PRN for Fever Loratadine (Claritin), 10 MG PO DAILY PRN for Seasonal Allergies Physical Examination Skin: warm/dry ENT: normal ENT inspection Head: normocephalic Neck: supple (incision from left neck biopsy healing well) Respiratory/Chest: normal breath sounds (right dim left) Cardiovascular: regular rate, rhythm Abdomen / GI: normal bowel sounds, non tender Back: normal inspection Extremities: normal inspection, normal range of motion Neurologic/Psych: no motor/sensory deficits (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
[2016-08-27] MEDS ORDERED: BACITRACIN 50000 UNIT VIAL ONE (10:55)
[2016-08-27] MEDS ORDERED: LIDOCAINE HCL 1% 20 ML VIAL ONE (10:55)
[2016-08-27] MEDS ORDERED: CEFAZOLIN SOD 1 GM VIAL ONE (11:17)
[2016-08-27] MEDS ORDERED: HYDR-3419 PO (11:23)
--- NOTE | 2016-08-27 11:24 | Discharge Instructions ---
Discharge Instructions Date of Service Aug 27, 2016. Visit Reason for Visit: Hodgkin's Lymphoma Discharge Discharge Diagnosis / Problem: A-port placement Discharge Goals Goal(s): Improve disease control Activity Recommendations Activity Limitations: as noted below Shower/Bathe: tomorrow Anesthesia . Post Anesthesia Instructions: If you have had General Anesthesia or IV Sedation: * Do not drive today. * Resume driving when surgeon permits. * Do not make important decisions or sign legal documents today. * Call surgeon for: 1. Temperature elevations greater than 101 degrees F. 2. Uncontrollable pain. 3. Excessive bleeding. 4. Persistent nausea and vomiting. 5. Medication intolerance (nausea, vomiting or rash). * For nausea and vomiting use only clear liquids such as: tea, soda, bouillon until nausea subsides, then gradually increase diet as tolerated. * If you have any concerns or questions, call your surgeon's office. If physician is unavailable and it is an emergency, call 911 or go to the nearest emergency room. . Instructions / Follow-Up Instructions / Follow-Up Dr. Carrillo's office as needed for any questions or concerns, [phone] Ok for port to be accessed for chemo Diet Recommendations Recommended Home Diet: no limitations Pending Studies Studies pending at discharge: no Medical Emergencies . Who to Call and When: Medical Emergencies: If at any time you feel your situation is an emergency, please call 911 immediately. . Non-Emergent Contact Non-Emergency issues call your: Surgeon Call Non-Emergent contact if: you have a fever, temperature is above 101.5, your pain is not controlled, wound has increased redness . . "Provider Documentation" section prepared by Dank Todd. .
[2016-08-27] MEDS ORDERED: LACTATED RINGER'S 1000ML 1,000 ML IV SCH (11:51)
--- NOTE | 2016-08-27 11:59 | [facility] Post Operative Brief Note ---
Immediate Operative Summary Operative Date Aug 27, 2016. Pre-Operative Diagnosis Hodgkin's Lymphoma and need for intravenous chemotheraphy Post-Operative Diagnosis same Procedure(s) Performed Infusaport Insertion using right subclavian(MRI compatible) Surgeon Dr Carrillo Facility Sales And Admin Surgeon(s) none Estimated Blood Loss 3ML Findings as preop Specimens none per surgeon Anesthesia .5% marcaine (7cc) and iv sedation
[2016-08-27] MEDS ORDERED: MoRPHine SULFATE 2 MG/ML CARP IV PRN (12:00)
[2016-08-27] MEDS ORDERED: HYDROCODONE/ACETAMOPHEN 5/325MG TAB PO PRN (12:00)
--- NOTE | 2016-08-27 12:20 | Anesthesiology Progress Note ---
Anesthesia Post Op Note Date & Time Aug 27, 2016 at 12:20 Vital Signs Pain Intensity: 0 Vital Signs Past 12 Hours Date Time Temp Pulse Resp B/P (MAP) Pulse Ox O2 Delivery O2 Flow Rate FiO2 08/27/16 12:18 80 14 94 08/27/16 12:18 80 14 08/27/16 12:17 97/61 08/27/16 12:15 36.7 76 20 97/61 95 Room Air 08/27/16 12:13 83 19 08/27/16 12:13 87 19 94 08/27/16 12:12 100/60 08/27/16 12:08 86 23 95 08/27/16 12:08 88 23 08/27/16 12:07 85 21 96/62 95 08/27/16 12:07 86 21 08/27/16 12:07 86 21 08/27/16 12:07 85 21 96/62 95 08/27/16 12:02 69 22 08/27/16 12:02 68 22 96/56 100 08/27/16 12:02 69 22 08/27/16 12:02 68 22 96/56 100 08/27/16 11:57 86 20 94/68 100 08/27/16 11:57 85 20 08/27/16 11:57 86 20 94/68 100 08/27/16 11:57 85 20 08/27/16 11:54 97/65 08/27/16 11:54 97/65 08/27/16 11:52 36.3 82 16 97/65 100 Mask 7 08/27/16 08:59 36.8 85 16 109/63 (78) 97 Room Air Notes Mental Status: alert / awake / arousable, participated in evaluation Pt Amnestic to Procedure: No (recall as expected) Nausea / Vomiting: adequately controlled Pain: adequately controlled Airway Patency, RR, SpO2: stable & adequate BP & HR: stable & adequate Hydration State: stable & adequate Anesthetic Complications: no major complications apparent Pt doing well.
--- NOTE | 2016-08-27 12:34 | DIAGNOSTIC IMAGING REPORT ---
CHEST ONE VIEW PORTABLE CLINICAL HISTORY: port placement COMPARISON STUDY: No previous studies for comparison. FINDINGS: There is a right subclavian A-Port catheter. Tip projects over the atrial caval junction[. There is no pneumothorax. There is a moderate to large left pleural effusion with associated left lung mass. The left lung is nearly completely opaque. IMPRESSION: 1. Moderate to large left pleural effusion with associated and associated left lung opacity, previously shown to represent a mass 2. No evidence of pneumothorax status post placement of a right-sided A-Port catheter Electronically signed by: Raza Hawk M.D. 08/27/2016 12:32 PM Dictated Date/Time: 08/27/2016 12:27 PM
[2016-08-27 12:45] VITALS: BP 94/56; PULSE 82; TEMP 36.9; O2SAT 96
--- NOTE | 2016-08-27 13:10 | OPERATIVE REPORT ---
DATE OF OPERATION: 08/27/2016 PREOPERATIVE DIAGNOSIS: Hodgkin's disease. POSTOPERATIVE DIAGNOSIS: Same. PROCEDURE: Insertion MRI compatible port through the right subclavian. SURGEON: Dr. Carrillo. OPERATION AND FINDINGS: SUMMARY: The patient was brought into the operating room theater, roll had been put between the scapula. IV sedation was given along with systemic antibiotics. Right chest area was prepped with Betadine scrubbing solution and properly draped. The patient was then placed in Trendelenburg position. We were able then to use local anesthetic 0.5% Marcaine, total of about 6 mL was used to first infiltrate the angle of the clavicle. IV sedation was given. We percutaneously accessed the subclavian vein with a single passage without any problem, guidewire followed then went towards easily. At this point, the patient started coughing as she has a chronic cough and anesthesia managed the problem. Fluoroscopically, the guidewire was visualized and going to close the right atrium area and ventricle. At this point, more local was used to make a counter incision approximately 2 inches long, about an inch or so below the subclavian puncture. The patient was still , so she still had a significant amount of large breasts. I tried to stay away from breast tissue. We entered the subcutaneous tissue, dissected out inferiorly sufficient enough to allow that could accommodate the reservoir. At this point we then connected the guidewire that had been percutaneously placed. We moved it underneath the skin to this previously made pocket. More local was used. The patient was placed in Trendelenburg position at this point. We placed the introducer without any difficulty and then placed the catheter. We got about 10 cm and the catheter would not advance. I am not sure what the etiology was, it was hard to see we partially pulled away the sheath and could not really see fluoroscopically the end of the sheath. At this point, I placed the guidewire after cutting the catheter at approximately 30 cm to give us some stiffness and then was able to advance it and visualize the catheter went into the superior vena cava towards the right atrial area, possibly inferior to that. At this point, the peel away sheath was removed. I then removed the guidewire and fluoroscopically tried to position the catheter at the level of the right atrial superior vena cava area. Initially once we took the guidewire, flushed and connected to the reservoir after using the black bolster, secured in place, aspirated with some difficulty; therefore I repositioned it to cut little bit more and appeared to be more satisfactorily repositioned the catheter in reservoir again using the black bolster, aspirated and flushed easily. We placed in the previously made pocket, visualized the system again and there was no redundancy and seemed to be satisfactory. At this point, I fixed the reservoir at the 3 prongs using 2-0 Prolene sutures. Subcutaneous tissue was brought back 3-0 Dexon and 4-0 Monocryl subcuticular. Steri-Strips applied. Prior to leaving the room I aspirated percutaneously the reservoir easily palpable and flushed quite easily and aspirated quite easily. The procedure was tolerated well by the patient. Estimated blood loss approximately 3 mL. Chest x-ray pending at this time. I attest to the content of the Intraoperative Record and any orders documented therein. Any exception s are noted below.
[2016-08-27 13:21] VITALS: BP 85/55; PULSE 80; TEMP 36.9; O2SAT 96
== END 2016-08-27 13:20 | disposition home or self-care (01) ==
LOC: C.ACU 08:33
PROVIDERS: ATTEND Surgery
DX: C81.90 Hodgkin lymphoma, unspecified, unspecified site (principal); J38.01 Paralysis of vocal cords and larynx, unilateral; Z22.330 Carrier of Group B streptococcus; Z79.899 Other long term (current) drug therapy

== ENCOUNTER → 2016-09-04 | Outpatient (CLI) | payer OTHER ==
[~2016-09-04] MED LIST changes: +CPR500 PO; +HYDR-3419 PO; -LACTATED RINGER'S 1000ML 1,000 ML IV SCH; +SULF800T23 PO; +ZVR400 PO
== END | disposition home or self-care (01) ==
LOC: C.PAPS 16:01
PROVIDERS: ATTEND Obstetrics & Gynecology
DX: Z12.4 Encounter for screening for malignant neoplasm of cervix (principal)

== ENCOUNTER 2017-01-31 22:09 | Emergency (ER) | payer OTHER ==
[~2017-01-31] VITALS: Ht 157.5 cm; Wt 70.3 kg
[~2017-01-31 22:09] MED LIST changes: -CPR500 PO; -SULF800T23 PO; -ZVR400 PO
[2017-01-31 22:10] VITALS: Ht 157.5 cm; Wt 70.3 kg
--- NOTE | 2017-01-31 22:25 | EMERGENCY ROOM VISIT NOTE ---
History Report prepared by Etelvina: Daniel Wright Under the Supervision of: Dr. Francisco Javier Rico M.D. First contact with patient: 22:15 Chief Complaint: FEVER Stated Complaint: FEVER History of Present Illness The patient is a 32 year old female with a past medical history of Hodgkin's lymphoma who presents to the ED with a cc of a constant fever beginning today. Positive for a runny nose and nausea. Negative urinary problems and rashes. The patient states that she is currently a chemotherapy patient for Hodgkin's lymphoma. She notes that she receives ABVD treatment, and that her last treatment was two weeks ago. She reports that her fever hit a high of 101.8. The patient states that she has a port placed but does not like having it accessed. She denies any recent travel and states that she has known sick contacts at home. Source of History: patient Onset: today Position: other (global) Symptom Intensity: 101.8 Quality: other (fever) Timing: constant Associated Symptoms: + nausea, No urinary symptoms, No rash Note: the patient also complains of a runny nose. Review of Systems See HPI for pertinent positives and negatives. A total of ten systems were reviewed and were otherwise negative. 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 Social History Smoking Status: Never Smoker Marital Status: single Occupation Status: employed Current/Historical Medications Scheduled Acyclovir (Acyclovir), 400 MG PO BID Ciprofloxacin (Ciprofloxacin HCl), 500 MG PO BID Sulfa/Trimethoprim (Bactrim Ds 800MG/160MG), 1 TAB PO 2XWK Scheduled PRN Loratadine (Claritin), 10 MG PO DAILY PRN for Seasonal Allergies Allergies Coded Allergies: No Known Allergies (Unverified , 08/27/16) Physical Exam Vital Signs Date Time Temp Pulse Resp B/P (MAP) Pulse Ox O2 Delivery O2 Flow Rate FiO2 01/31/17 23:41 37.8 109 20 113/57 98 01/31/17 23:19 105 01/31/17 23:07 98 Room Air 01/31/17 22:10 38.0 117 20 122/79 97 Room Air Physical Exam GENERAL: Awake, alert, nontoxic-appearing, NAD HENT: Normocephalic, atraumatic. No stridor over neck. EYES: Normal conjunctiva. Sclera non-icteric. NECK: Supple. No nuchal rigidity. FROM. RESPIRATORY: CTAB, no rhonchi, wheezing, crackles CARDIAC: No MRG. Tachycardic. ABDOMEN: Soft, NTND, BS+ MSK: No chest wall TTP, no LE edema NEURO: GCS 15, CN 2-12 intact, moves all 4s on command SKIN: No rash or jaundice noted. No rashes noted. Medical Decision & Procedures ER Provider Diagnostic Interpretation: Radiology results as stated below per my review and radiologist interpretation: CHEST ONE VIEW PORTABLE FINDINGS: Cardiac silhouette is upper limits of normal. Right internal jugular central venous catheter is present terminating within the region of the superior cavoatrial junction. Moderate left hemidiaphragmatic elevation. No pneumothorax, pleural effusion, focal airspace consolidation or overt pulmonary edema. The bones of the chest are grossly intact. IMPRESSION: 1. Moderate left hemidiaphragmatic elevation without acute cardiopulmonary process. 2. No lobar airspace consolidation to suggest pneumonia. The above report was generated using voice recognition software. It may contain grammatical, syntax or spelling errors. Electronically signed by: Raimundo Meyer M.D. 01/31/2017 10:45 PM Laboratory Results 01/31/17 22:50 Red Blood Count 3.61, Mean Corpuscular Volume 84.8, Mean Corpuscular Hemoglobin 28.3, Mean Corpuscular Hemoglobin Concent 33.3, Mean Platelet Volume 11.1, Neutrophils (%) (Auto) 62.6, Lymphocytes (%) (Auto) 17.9, Monocytes (%) (Auto) 18.2, Eosinophils (%) (Auto) 1.0, Basophils (%) (Auto) 0.0, Neutrophils # (Auto ) 1.85, Lymphocytes # (Auto) 0.53, Monocytes # (Auto) 0.54, Eosinophils # (Auto ) 0.03, Basophils # (Auto) 0.00 01/31/17 22:50 Test 01/31/17 22:49 01/31/17 22:50 01/31/17 23:00 Lactic Acid Level 0.7 mmol/L (0.4-2.0) White Blood Count 2.96 K/uL (4.8-10.8) Red Blood Count 3.61 M/uL (4.2-5.4) Hemoglobin 10.2 g/dL (12.0-16.0) Hematocrit 30.6 % (37-47) Mean Corpuscular Volume 84.8 fL (80-100) Mean Corpuscular Hemoglobin 28.3 pg (25-34) Mean Corpuscular Hemoglobin Concent 33.3 g/dl (32-36) Platelet Count 247 K/uL (130-400) Mean Platelet Volume 11.1 fL (7.4-10.4) Neutrophils (%) (Auto) 62.6 % Lymphocytes (%) (Auto) 17.9 % Monocytes (%) (Auto) 18.2 % Eosinophils (%) (Auto) 1.0 % Basophils (%) (Auto) 0.0 % Neutrophils # (Auto) 1.85 K/uL (1.4-6.5) Lymphocytes # (Auto) 0.53 K/uL (1.2-3.4) Monocytes # (Auto) 0.54 K/uL (0.11-0.59) Eosinophils # (Auto) 0.03 K/uL (0-0.5) Basophils # (Auto) 0.00 K/uL (0-0.2) RDW Standard Deviation 45.0 fL (36.4-46.3) RDW Coefficient of Variation 14.6 % (11.5-14.5) Immature Granulocyte % (Auto) 0.3 % Immature Granulocyte # (Auto) 0.01 K/uL (0.00-0.02) Ovalocytes 1+ Schistocytes OCCASIONAL Anion Gap 10.0 mmol/L (3-11) Est Creatinine Clear Calc Drug Dose 132.6 ml/min Estimated GFR () 144.2 Estimated GFR (Non- 124.4 BUN/Creatinine Ratio 15.4 (10-20) Calcium Level 9.1 mg/dl (8.5-10.1) Total Bilirubin 0.4 mg/dl (0.2-1) Direct Bilirubin < 0.1 mg/dl (0-0.2) Aspartate Amino Transf (AST/SGOT) 9 U/L (15-37) Alanine Aminotransferase (ALT/SGPT) 16 U/L (12-78) Alkaline Phosphatase 41 U/L (45-117) Total Protein 7.5 gm/dl (6.4-8.2) Albumin 3.5 gm/dl (3.4-5.0) Lipase 181 U/L (73-393) Influenza Type A Antigen Neg for Influ A (NEG) Influenza Type B Antigen Neg for Influ B (NEG) Laboratory results reviewed by me Medications Administered Medications (Trade) Dose Ordered Sig/Brenda Route Start Time Stop Time Status Last Admin Dose Admin Acetaminophen (Tylenol Tab) 1,000 mg NOW STAT PO 01/31/17 22:26 01/31/17 22:28 DC 01/31/17 22:56 1,000 MG Lactated Ringer's 1,000 ml @ 999 mls/hr Q1H1M STAT IV 02/01/17 00:02 02/01/17 01:02 02/01/17 00:02 999 MLS/HR Ibuprofen (Motrin Tab) 600 mg NOW STAT PO 02/01/17 00:38 02/01/17 00:39 DC 02/01/17 00:42 600 MG ECG Indication: tachycardia Rate (beats per minute): 99 Rhythm: normal sinus Findings: no ectopy, other (normal interval, normal axis, ? Q wave in lead three, no STS or TWI) ED Course 2218: The patient was evaluated in room A10. A complete history and physical exam was performed. 2252: I spoke to Dr. Mcdonough. She is an oncology fellow of Dr. Genao. Her recommendation was that is the patient developed neutropenic fever, keep her for an hour for treatment. If the fever was not neutropenic, the patient should be discharged with return precautions. No Neupogen if neutropenic. 0015: I reevaluated the patient. Discussed results and discharge instructions: She verbalized understanding and agreement. The patient is ready for discharge. Medical Decision The patient is a 32 year old female with a past medical history of Hodgkin's lymphoma who presents to the ED with a cc of a constant fever beginning today. Positive for a runny nose and nausea. Negative urinary problems and rashes. Differential diagnosis: Etiologies such as viral syndrome, otitis, pharyngitis, pneumonia, influenza, meningitis, urinary tract infection, sepsis, bacteremia, neutropenic fever, as well as others were entertained. Patient was seen and evaluated the bedside. Patient is a thin known history of Hodgkin's lymphoma recently completed her chemotherapy approximately 2 weeks prior. Patient has complained of some URI-type symptoms but no other issues. Patient denies any rashes, cough, infections to her report. Patient did have blood work that was completed along with the chest x-ray and urinalysis. Blood and urine cultures were also ordered. Asians blood work did show that she has some leukopenia. Patient's absolute neutrophil count was greater than 1800. Patient had a negative chest x-ray. Patient was unable to provide a urinalysis. Patient was on Bactrim and Cipro. Patient no CVA tenderness and thus less likely to be pyelo-. I did speak with the patient's oncology service and [place]. They did state that the patient did have neutropenic fever that they would benefit from an inpatient stay for broad-spectrum an abrupt biotics further treatment. However, patient was not neutropenic they should be able to follow up as an outpatient. Patient's fever and tachycardia improved with symptomatic treatment of motrin, tylenol, and IVF. Patient had a negative chest x-ray. Patient did not have any other abnormalities. No urine specimen at this time. Stated had already urinated w/o giving sample. Given that she is already on Cipro and Bactrim she would likely be covered for UTI and does not have CVATTP so less likely pyelo. Patient does not appear dry. Furthermore patient does not have an elevated BUN, nor does she have an elevated BUN/ creatinine ratio > 20 suggesting prerenal azotemia. Renal function is normal. Patient does have blood cultures are pending. LA WNL. Patient does have follow- up with her oncologist on Wednesday. Given that she is not suffering from neutropenic fever w/ ANC of 1800 it would not likely be in the patient's best interest to stay in the hospital especially after discussing with the oncologist as she may be more susceptible to infections may be here in the hospital while immunosuppressed. She is agreeable with this plan. Patient was feeling improved. Patient was told take Motrin and Tylenol [id number] for the next 2 days to continue aggressive fluid hydration. Patient was given strict return precautions. Patient was given strict follow-up, discharge, and return precautions. All questions were answered. Patient was deemed suitable for outpatient follow-up at this time. Patient agreed with the plan of care and was safely discharged home. Medication Reconcilliation Current Medication List: was personally reviewed by me Blood Pressure Screening Patient's blood pressure: Normal blood pressure Blood pressure disposition: Did not require urgent referral Impression Primary Impression: URI (upper respiratory infection) Additional Impressions: Leukopenia due to antineoplastic chemotherapy Fever Scribe Attestation The scribe's documentation has been prepared under my direction and personally reviewed by me in its entirety. I confirm that the note above accurately reflects all work, treatment, procedures, and medical decision making performed by me. Departure Information Dispostion Home / Self-Care Referrals Anirudh Prakash M.D. (PCP) Patient Instructions ED Upper Resp Infec No Abx Tx, My [facility] Additional Instructions Please return to the emergency department if you have worsening or recurrent symptoms not amenable to at-home treatment. Please call for a follow-up appointment with her primary care physician. Please take your medications as prescribed. If you have other concerns and/or complaints please feel free to also call your primary care physician's office or return the ED for further evaluation, management, and treatment. You may take 600 mg Ibuprofen every 6 hours as needed for pain with food for no more than 2 consecutive days. You may take tylenol 1000 mg every 6 hours as needed for pain. You may take motrin and tylenol separately or at the same time. He may also try saline nasal sprays as well as Sudafed for your congestion. Do not take Sudafed for more than 2 consecutive days. Take your medications as prescribed. If taking an antibiotic consider taking a probiotic and/or eating yogurt, but at the least, please take with food as it can cause upset stomach. If culture results are not available at discharge, if they are positive for concern of infection, you will be informed of the results as soon as they are available. If you were seen between 11pm and 7AM all radiology reads will be re-read by our in house staff. If any major discrepancies are discovered, you will be notified. You have been examined and treated today on an emergency basis only. This is not a substitute for, or an effort to provide, complete comprehensive medical care. It is impossible to recognize and treat all injuries or illnesses in a single emergency department visit. It is therefore important that you follow up closely with [facility], your PCP, and/or your specialist(s). Call as soon as possible for an appointment. Thank you for your time and consideration. I look forward to speaking with you again soon. Please don't hesitate to call us if you have any questions. Problem Qualifiers Primary Impression: URI (upper respiratory infection) URI type: unspecified URI Qualified Codes: J06.9 - Acute upper respiratory infection, unspecified Additional Impressions: Fever Fever type: unspecified Qualified Codes: R50.9 - Fever, unspecified
[2017-01-31] MEDS ORDERED: ACETAMINOPHEN 500 MG TAB PO STA (22:26)
--- NOTE | 2017-01-31 22:46 | DIAGNOSTIC IMAGING REPORT ---
CHEST ONE VIEW PORTABLE HISTORY: 32 years-old Female Evaluate Fever/Sepsis acute fever and sepsis COMPARISON: Chest radiograph 08/27/2016 TECHNIQUE: AP view of the chest FINDINGS: Cardiac silhouette is upper limits of normal. Right internal jugular central venous catheter is present terminating within the region of the superior cavoatrial junction. Moderate left hemidiaphragmatic elevation. No pneumothorax, pleural effusion, focal airspace consolidation or overt pulmonary edema. The bones of the chest are grossly intact. IMPRESSION: 1. Moderate left hemidiaphragmatic elevation without acute cardiopulmonary process. 2. No lobar airspace consolidation to suggest pneumonia. The above report was generated using voice recognition software. It may contain grammatical, syntax or spelling errors. Electronically signed by: Raimundo Meyer M.D. 01/31/2017 10:45 PM Dictated Date/Time: 01/31/2017 10:43 PM
[2017-01-31] MEDS ORDERED: SULF800T23 PO (22:47)
[2017-01-31] MEDS ORDERED: ZVR400 PO (22:47)
[2017-01-31] MEDS ORDERED: CPR500 PO (22:47)
[2017-01-31 23:07] VITALS: O2SAT 98
[2017-01-31 23:07] LABS: HEMATOCRIT 30.6 % (37-47); IG% 0.3 %; LYMPH % 17.9 %; LYMPH ABS # 0.53 K/uL (1.2-3.4); MEAN CELL VOLUME 84.8 fL (80-100); MEAN CORPUSCULAR HEMOGLOBIN 28.3 pg (25-34); MEAN CORPUSCULAR HGB CONC 33.3 g/dl (32-36); MEAN PLATELET VOLUME 11.1 fL (7.4-10.4); MONO % 18.2 %; NEUT % 62.6 %; PLATELET COUNT 247 K/uL (130-400); RED BLOOD COUNT 3.61 M/uL (4.2-5.4); WHITE BLOOD COUNT 2.96 K/uL (4.8-10.8)
[2017-01-31 23:28] LABS: ALT/SGPT 16 U/L (12-78); AST/SGOT 9 U/L (15-37); BLOOD UREA NITROGEN 9 mg/dl (7-18); BUN/CREATININE RATIO 15.4 (10-20); CALCIUM 9.1 mg/dl (8.5-10.1); CARBON DIOXIDE 26 mmol/L (21-32); CHLORIDE 104 mmol/L (98-107); CREATININE 0.57 mg/dl (0.60-1.20); GLUCOSE 90 mg/dl (70-99); POTASSIUM 3.7 mmol/L (3.5-5.1); SODIUM 140 mmol/L (136-145)
[2017-01-31 23:31] LABS: ALKALINE PHOSPHATASE 41 U/L (45-117)
[2017-01-31 23:41] LABS: COMPLETE YES; OVALOCYTES 1+; SCHISTOCYTES OCCASIONAL
[2017-02-01] MEDS ORDERED: LACTATED RINGER'S 1000ML 1,000 ML IV STA (00:02)
[2017-02-01] MEDS ORDERED: IBUPROFEN 600 MG TAB PO STA (00:38)
[2017-02-01 01:05] VITALS: BP 115/70; PULSE 99; TEMP 36.8; O2SAT 98
== END 2017-02-01 01:10 | disposition home or self-care (01) ==
LOC: C.EDB 22:09 → C.EDA 02-01 01:10
DX: J06.9 Acute upper respiratory infection, unspecified (principal); D70.1 Agranulocytosis secondary to cancer chemotherapy; T45.1X5A Adverse effect of antineoplastic and immunosuppressive drugs, initial encounter; R50.9 Fever, unspecified; C81.90 Hodgkin lymphoma, unspecified, unspecified site; Z22.330 Carrier of Group B streptococcus

== ENCOUNTER → 2017-03-26 | Outpatient (CLI) | payer OTHER ==
[~2017-03-26] MED LIST changes: -ACET-1311 PO; +CPR500 PO; -HYDR-3419 PO; -PRENTAB26 PO; +SULF800T23 PO; -VALA500T60 PO; +ZVR400 PO
== END | disposition home or self-care (01) ==
LOC: C.LABSPEC 13:44
PROVIDERS: ATTEND Physician Assistant
DX: Z30.430 Encounter for insertion of intrauterine contraceptive device (principal)

== ENCOUNTER → 2017-04-27 | Outpatient (CLI) | payer OTHER ==
[~2017-04-27] MED LIST changes: -CPR500 PO; -SULF800T23 PO
[2017-04-27 15:47] LABS: BASO % 0.5 %; BASO ABS # 0.03 K/uL (0-0.2); EOS % 2.8 %; EOS ABS # 0.17 K/uL (0-0.5); HEMATOCRIT 37.1 % (37-47); HEMOGLOBIN 12.6 g/dL (12.0-16.0); IG# 0.01 K/uL (0.00-0.02); LYMPH % 21.3 %; LYMPH ABS # 1.29 K/uL (1.2-3.4); MEAN CELL VOLUME 85.9 fL (80-100); MEAN CORPUSCULAR HEMOGLOBIN 29.2 pg (25-34); MEAN PLATELET VOLUME 11.5 fL (7.4-10.4); MONO % 10.1 %; MONO ABS # 0.61 K/uL (0.11-0.59); NEUT % 65.1 %; NEUT ABS # 3.95 K/uL (1.4-6.5); PLATELET COUNT 157 K/uL (130-400); RED CELL DISTRIBUTION WIDTH CV 15.3 % (11.5-14.5); RED CELL DISTRIBUTION WIDTH SD 48.3 fL (36.4-46.3); WHITE BLOOD COUNT 6.06 K/uL (4.8-10.8)
[2017-04-27 16:14] LABS: BLOOD UREA NITROGEN 13 mg/dl (7-18); CALCIUM 8.9 mg/dl (8.5-10.1); CARBON DIOXIDE 25 mmol/L (21-32); CREATININE 0.79 mg/dl (0.60-1.20); GLUCOSE 79 mg/dl (70-99); POTASSIUM 3.5 mmol/L (3.5-5.1); SODIUM 137 mmol/L (136-145)
== END | disposition home or self-care (01) ==
LOC: C.LAB1850 14:13
PROVIDERS: ATTEND Surgery
DX: Z01.812 Encounter for preprocedural laboratory examination (principal); Z95.828 Presence of other vascular implants and grafts; C81.90 Hodgkin lymphoma, unspecified, unspecified site

== ENCOUNTER → 2017-04-30 | Day surgery (SDC) | payer OTHER ==
[2017-04-16 14:32] VITALS: Ht 157.5 cm; Wt 68.2 kg
[~2017-04-30] VITALS: Ht 157.5 cm; Wt 68.2 kg
[~2017-04-30] MED LIST changes: +ATROPINE SULFATE 0.1 MG/ML 5ML SYR IV PRN; +EpHEDrine SULFATE INJ 50 MG/ML AMP IV PRN; +FENTANYL CITRATE INJ 50 MCG/1 ML 2 ML VIAL IV PRN; +FENTANYL CITRATE INJ 50 MCG/1 ML 2 ML VIAL ONE; +HYDROCODONE/ACETAMIN 5/325MG TAB PO PRN; +LACTATED RINGER'S 1000ML 1,000 ML IV SCH; +LIDOCAINE HCL 1% 20 ML VIAL ONE; +LIDOCAINE HCL 2% 2 ML VIAL (20MG/ML) ONE; +MIDAZOLAM HCL 1 MG/ML 2ML VIAL ONE; +MoRPHine SULFATE 2 MG/ML CARP IV PRN; +ONDANSETRON INJ 2 MG/ML 2 ML VIAL IV PRN; +PROPOFOL IV EMULSION 10 MG/ML 20 ML VIAL IV ONE
--- NOTE | 2017-04-30 09:24 | History & Physical Bridge Note ---
H&P Re-Evaluation Bridge Note: I have examined the patient, reviewed the History & Physical and in the interval since the performance of the History & Physical I have noted the following changes of clinical significance: No changes noted family at bedside
--- NOTE | 2017-04-30 10:02 | Discharge Instructions ---
Discharge Instructions Date of Service Apr 30, 2017. Visit Reason for Visit: Hodgkin's Lymphoma Discharge Discharge Diagnosis / Problem: A-port removal Discharge Goals Goal(s): Increase independence Activity Recommendations Activity Limitations: as noted below Shower/Bathe: tomorrow Anesthesia . Post Anesthesia Instructions: If you have had General Anesthesia or IV Sedation: * Do not drive today. * Resume driving when surgeon permits. * Do not make important decisions or sign legal documents today. * Call surgeon for: 1. Temperature elevations greater than 101 degrees F. 2. Uncontrollable pain. 3. Excessive bleeding. 4. Persistent nausea and vomiting. 5. Medication intolerance (nausea, vomiting or rash). * For nausea and vomiting use only clear liquids such as: tea, soda, bouillon until nausea subsides, then gradually increase diet as tolerated. * If you have any concerns or questions, call your surgeon's office. If physician is unavailable and it is an emergency, call 911 or go to the nearest emergency room. . Instructions / Follow-Up Instructions / Follow-Up Dr. Carrilol in 1-2 weeks, call [phone] if you do not already have an appt or have any questions You may take Tylenol or ibuprofen (up to 600mg 3 times per day) for pain Diet Recommendations Recommended Home Diet: no limitations Pending Studies Studies pending at discharge: no Medical Emergencies . Who to Call and When: Medical Emergencies: If at any time you feel your situation is an emergency, please call 911 immediately. . Non-Emergent Contact Non-Emergency issues call your: Surgeon Call Non-Emergent contact if: you have a fever, temperature is above 101.5, your pain is not controlled, wound has increased drainage, wound has increased redness . . "Provider Documentation" section prepared by Dank Todd. .
[2017-04-30 10:58] VITALS: TEMP 36.6
--- NOTE | 2017-04-30 11:15 | [facility] Post Operative Brief Note ---
Immediate Operative Summary Operative Date Apr 30, 2017. Pre-Operative Diagnosis Hodgkin's Lymphoma Post-Operative Diagnosis same as preop Procedure(s) Performed Removal Of A-port Surgeon Dr. Carrillo Lastex Operator Surgeon(s) none Estimated Blood Loss 2.75ml Findings See Below (as preop) as preop Specimens A: removed a-port Anesthesia Type MAC Disposition Disposition: Recovery Room / PACU (unable to complete post op note until now all computers taken)
[2017-04-30 11:21] VITALS: BP 104/67; PULSE 60; O2SAT 99
--- NOTE | 2017-04-30 11:26 | Anesthesia Progress Nt - [facility] ---
Anesthesia Post Op Note Date & Time Apr 30, 2017 at 11:25 Vital Signs Pain Intensity: 0 Vital Signs Past 12 Hours Date Time Temp Pulse Resp B/P (MAP) Pulse Ox O2 Delivery O2 Flow Rate FiO2 04/30/17 11:21 60 16 104/67 (79) 99 Room Air 04/30/17 10:58 36.6 70 16 97/59 (72) 97 Room Air 04/30/17 08:39 37.0 67 16 95/64 (74) 99 Room Air Notes Mental Status: alert / awake / arousable, participated in evaluation Pt Amnestic to Procedure: Yes Nausea / Vomiting: adequately controlled Pain: adequately controlled Airway Patency, RR, SpO2: stable & adequate BP & HR: stable & adequate Hydration State: stable & adequate Anesthetic Complications: no major complications apparent
--- NOTE | 2017-04-30 11:32 | OPERATIVE REPORT ---
DATE OF OPERATION: 04/30/2017 SURGEON: Romero Carrillo MD. PREOPERATIVE DIAGNOSIS: Exhausted A-port to the right subclavian. POSTOPERATIVE DIAGNOSIS: Same. PROCEDURE: Removal of exhausted A-Port. SUMMARY: The patient was brought into the operating room theater. IV sedation was given. The left chest and neck was prepped with Betadine solution and properly draped. 1% Xylocaine without epinephrine, we used approximately 8 mL to infiltrate the bottom of the incision and actually the incision was intact but had widened to about a 1/4 cm. Therefore, after achieving anesthetic level, we elliptically excised this cicatrix. I then dissected out onto the pseudocapsule, which we easily entered. I elevated the port as we removed the 3 polar sutures. We then stripped the pseudomembrane along the catheter sufficient enough that the A-port completely could be removed holding pressure in the subclavian area. That pseudomembrane was then ligated with 2-0 silk as it was well-defined. The catheter was checked for its completeness of traction which was fine. The wound was closed with running chromic for subcutaneous, running 4-0 nylon vertical mattress for skin edges, 4 x 4 and Op-Site. The procedure was tolerated well. Estimated blood loss about 3-1/4 mL. The patient was taken to recovery room in good condition. I attest to the content of the Intraoperative Record and any orders documented therein. Any exception s are noted below.
== END | disposition home or self-care (01) ==
LOC: X.SURG 08:26
PROVIDERS: ATTEND Surgery
DX: Z45.2 Encounter for adjustment and management of vascular access device (principal); C81.90 Hodgkin lymphoma, unspecified, unspecified site; K21.9 Gastro-esophageal reflux disease without esophagitis; Z82.49 Family history of ischemic heart disease and other diseases of the circulatory system